=== PATIENT | male | born 1985 ===

== ENCOUNTER → 2018-10-13 | Outpatient (CLI) | payer OTHER | END | disposition home or self-care (01) | LOC: TOM 11:42 | DX: R31.21 Asymptomatic microscopic hematuria (principal) ==

== ENCOUNTER 2021-05-01 08:32 | Outpatient (CLI) | payer OTHER | END 2021-05-01 08:38 | disposition home or self-care (01) | LOC: SONOGRAMA 08:32 | PROVIDERS: ATTEND Internal Medicine Endocrinology, Diabetes & Metabolism | DX: C75.0 Malignant neoplasm of parathyroid gland (principal); E89.0 Postprocedural hypothyroidism ==